=== PATIENT | male | born 1995 | race African-American/Black ===

== ENCOUNTER 2017-02-03 01:51 | Emergency (ER) | payer SELFPAY ==
[~2017-02-03] VITALS: Ht 190.5 cm; Wt 90.7 kg
[2017-02-03 01:59] VITALS: BP 128/77
== END 2017-02-03 03:40 | disposition left against medical advice (07) ==
LOC: ER 01:52
DX: M25.531 Pain in right wrist (principal); R42 Dizziness and giddiness; V89.2XXA Person injured in unspecified motor-vehicle accident, traffic, initial encounter; Y93.89 Activity, other specified; Y99.8 Other external cause status; Y92.89 Other specified places as the place of occurrence of the external cause; Z53.21 Procedure and treatment not carried out due to patient leaving prior to being seen by health care provider

== ENCOUNTER 2019-03-31 03:17 | Emergency (ER) | payer MEDICAID ==
[~2019-03-31] VITALS: Ht 190.5 cm; Wt 95.3 kg
[2019-03-31] MEDS ORDERED: IBUPROFEN 800 MG TAB PO ONE (06:30)
[2019-03-31 06:37] VITALS: BP 121/71
== END 2019-03-31 09:33 | disposition home or self-care (01) ==
LOC: ER 03:21
DX: S16.1XXA Strain of muscle, fascia and tendon at neck level, initial encounter (principal); S20.212A Contusion of left front wall of thorax, initial encounter; V43.62XA Car passenger injured in collision with other type car in traffic accident, initial encounter; Y93.89 Activity, other specified; Y92.488 Other paved roadways as the place of occurrence of the external cause; Y99.8 Other external cause status
CPT/HCPCS: 71046

== ENCOUNTER 2024-12-17 21:00 | Emergency (ER) | payer MEDICAID ==
[~2024-12-17] VITALS: Ht 190.5 cm; Wt 111.0 kg
[2024-12-17 21:10] VITALS: BP 105/72; PULSE 59; RESP 18; TEMP 98; O2SAT 98
--- NOTE | 2024-12-17 21:43 | ED.PDOC ---
Back pain HPI HPI Comments 29-YEAR-OLD MALE PRESENTS TO THE ED CHIEF COMPLAINT STATUS POST FALL RIGHT HIP PAIN. SHE WAS WALKING SLIPPED FELL ON HIS RIGHT SIDE YESTERDAY. STATES JUST GOT OUT OF WORK REPORTS INCREASING PAIN TO HIS RIGHT HIP DOWN HIS LEG. NUMBNESS, WEAKNESS, HEAD INJURY, LOC, NECK OR BACK PAIN. 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 12/17/24 Information Source: Patient Mode of Arrival: Ambulatory Timing: Days (1) Severity: Moderate Quality: Sharp, Stabbing Onset: Fall Modifying Factors: No Movement, No Walking Associated signs and symptoms: None Past Medical History PAST MEDICAL HISTORY: Denies Surgical History: Denies all surgeries Family History Family History: No family hx of DM Social History Smoker: Non-Smoker Alcohol: Denies ETOH Use Drugs: Denies Drug Use Lives In: Home Constitutional: denies: chills, diaphoresis, fatigue, fever, malaise, sweats, weakness, others EENTM: denies: blurred vision, double vision, ear bleeding, ear discharge, ear drainage, ear pain, ear ringing, eye pain, eye redness, hearing loss, mouth pain, mouth swelling, nasal discharge, nose bleeding, nose congestion, nose pain, photophobia, tearing, throat pain, throat swelling, voice changes, others Respiratory: denies: cough, hemoptysis, orthopnea, SOB at rest, shortness of breath, SOB with excertion, stridor, wheezing, others Cardiovascular: denies: chest pain, dizzy spells, diaphoresis, Dyspnea on exertion, edema, irregular heart beat, left arm pain, lightheadedness, palpitations, PND, syncope, others Gastrointestinal: denies: abdomen distended, abdominal pain, blood streaked bowels, constipated, diarrhea, dysphagia, difficulty swallowing, hematemesis, melena, nausea, poor appetite, poor fluid intake, rectal bleeding, rectal pain, vomiting, others Genitourinary: denies: burning, dysuria, flank pain, frequency, hematuria, incontinence, penile discharge, penile sore, pain, testicle pain, testicle swelling, urgency, others Neurological: denies: dizziness, fainting, headache, left sided numbness, left sided weakness, numbness, paresthesia, pre-existing deficit, right sided numbness, right sided weakness, seizure, speech problems, tingling, tremors, weakness, others Musculoskeletal: reports: others (RIGHT HIP AND THIGH); denies: back pain, gout, joint pain, joint swelling, muscle pain, muscle stiffness, neck pain Integumetry: denies: bruises, change in color, change in hair/nails, dryness, laceration, lesions, lumps, rash, wounds, others Allergic/Immunocompromised: denies: Difficulty Healing, Frequent Infections, Hives, Itching, others Hematologic/Lymphatic: denies: anemia, blood clots, easy bleeding, easy bruising, swollen glands, others Endocrine: denies: excessive hunger, excessive sweating, excessive thirst, excessive urination, flushing, intolerance to cold, intolerance to heat, unexplained weight gain, unexplained weight loss, others Psychiatric: denies: anxiety, bipolar disorder, depression, hopeless, panic disorder, schizophrenia, sleepless, suicidal, others Physical Exam General Appearance: No Apparent Distress, Normal HEENT: Pharynx Normal Neck: Full Range of Motion, Non-Tender Respiratory: Lungs Clear, No Respiratory Distress, Normal Breath Sounds Cardiovascular: No Murmur, Normal Peripheral Pulses, Regular Rate/Rhythm Breast Exam: Deferred Gastrointestinal: No Organomegaly, Non Tender, No Pulsatile Mass, Normal Bowel Sounds, Soft Genitalia: Deferred Pelvic: Deferred Rectal: Deferred Extremities: Normal capillary refill, Normal inspection, Normal range of motion, Non-tender, No pedal edema Musculoskeletal : Location: Right Extremity Location: Hip (HAS BEEN PAIN ALONG RIGHT LATERAL HIP RADIATION HALF WAY DOWN LATERAL THIGH. ABRASIONS, LACERATIONS, ECCHYMOSIS. 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 Was a procedure done?: No Back Pain Differential Dx Differential Diagnosis: Fracture, Musculoskeletal Pain X-Ray, Labs, Meds, VS Vital Signs Date Time Temp Pulse Resp B/P (MAP) Pulse Ox O2 Delivery O2 Flow Rate FiO2 12/17/24 21:10 Room Air 12/17/24 21:10 98.0 59 18 105/72 (83) 98 98.0 12/17/24 21:10 98.0 59 18 105/72 (83) 98 Current Medications Medications (Trade) Dose Ordered Sig/Jack Route Start Time Stop Time Status Last Admin Ketorolac Tromethamine (Toradol Injection) 60 mg ONCE ONCE IM 12/17/24 22:15 12/17/24 22:16 DC 12/17/24 22:35 X-Ray, Labs, Meds, VS Comment RIGHT X-RAY SHOWS NO ACUTE FINDINGS OR OSSEOUS LESIONS. TORADOL 60 MG IM REPORTS IMPROVEMENT IN PAIN AND FUNCTION REQUESTING DISCHARGE AT THIS TIME. IBUPROFEN 800 MG T.I.D. P.R.N. PAIN. FOLLOW-UP WITH PCP IN 1 TO 2 DAYS. TAKE MEDICATIONS PRESCRIBED. RETURN TO ED FOR ANY NEW OR WORSENING SYMPTOMS. Time of 1ST Reevaluation: 23:08 Reevaluation 1ST: Improved Patient Education/Counseling: Diagnosis, Treatment, Prognosis, Need For Follow Up Family Education/Counseling: No Family Present Departure 1 Departure Time of Disposition: 23:08 Impression: Primary Impression: Contusion of right hip and thigh Qualified Codes: S70.01XA - Contusion of right hip, initial encounter; S70.11XA - Contusion of right thigh, initial encounter Disposition: 01 HOME / SELF CARE / HOMELESS Condition: Stable e-Prescriptions Ibuprofen Micronized (Ibuprofen) 800 Mg Tab 800 MG PO TID PRN for 5 Days, #15 TAB Prov: MARCO A GIVENS 12/17/24 Discharged With: Self Critical Care Note Critical Care Time?: No Stability Stability form required: No MARCO A GIVENS Dec 17, 2024 21:43
--- NOTE | 2024-12-17 22:07 | DVH ---
XY R HIP COMPLETE XRAY, INDICATION: INJURY/PAIN TECHNICAL DATA: Frontal and frog lateral views were obtained of the right hip.] COMPARISON: None FINDINGS: The right hip is normally located. The right hip joint is normally maintained with no marginal osteop hytes. No right hip fracture is identified. The right sacroiliac joint appears normal. IMPRESSION: Normal radiographs of the right hip.
[2024-12-17] MEDS: KETOROLAC TROMETH 60MG/2ML VIAL IM ONE (22:35)
[2024-12-17] MEDS ORDERED: IBUP-1455 PO (22:45)
== END 2024-12-17 22:58 | disposition home or self-care (01) ==
LOC: ER 21:00
DX: S70.01XA Contusion of right hip, initial encounter (principal); S70.11XA Contusion of right thigh, initial encounter; W01.0XXA Fall on same level from slipping, tripping and stumbling without subsequent striking against object, initial encounter; Y93.01 Activity, walking, marching and hiking; Y92.89 Other specified places as the place of occurrence of the external cause; Y99.8 Other external cause status
CPT/HCPCS: 73502; 96372; 99283; J1885

== ENCOUNTER 2025-01-21 19:11 | Emergency (ER) | payer MEDICAID ==
[~2025-01-21] VITALS: Ht 190.5 cm; Wt 100.0 kg
--- NOTE | 2025-01-21 19:34 | ED.PDOC ---
History of Present Illness HPI Comments 29-year-old male who came to ER for chest pains. Patient states he has been having intermittent episodes of chest pains since July last year. Noted worsening of chest pains the past 2 weeks. Chest pain worse with movements. 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 Patient also coming in concerned that he might have acquired a sexually transmitted disease since he had unprotected sex last night with somebody who isn't his partner. Chief Complaint: Chest Pain Time Seen by MD: 19:40 Primary Care Provider: N/a Reviewed Notes: Nurses Notes Allergies: Coded Allergies: NO KNOWN ALLERGIES (Unverified , 05/23/14) Information Source: Patient Mode of Arrival: EMS Severity: Moderate Timing: Weeks Duration: Intermittent Past Medical History PAST MEDICAL HISTORY: Denies Surgical History: Denies all surgeries Family History Family History: No family hx of DM Social History Smoker: Other (Vape) Alcohol: Denies ETOH Use Drugs: Marijuana Lives In: Home Constitutional: denies: chills, diaphoresis, fatigue, fever, malaise, sweats, weakness, others EENTM: denies: blurred vision, double vision, ear bleeding, ear discharge, ear drainage, ear pain, ear ringing, eye pain, eye redness, hearing loss, mouth pain, mouth swelling, nasal discharge, nose bleeding, nose congestion, nose pain, photophobia, tearing, throat pain, throat swelling, voice changes, others Respiratory: denies: cough, hemoptysis, orthopnea, SOB at rest, shortness of breath, SOB with excertion, stridor, wheezing, others Cardiovascular: reports: chest pain; denies: dizzy spells, diaphoresis, Dyspnea on exertion, edema, irregular heart beat, left arm pain, lightheadedness, palpitations, PND, syncope, others Gastrointestinal: denies: abdomen distended, abdominal pain, blood streaked bowels, constipated, diarrhea, dysphagia, difficulty swallowing, hematemesis, melena, nausea, poor appetite, poor fluid intake, rectal bleeding, rectal pain, vomiting, others Genitourinary: denies: burning, dysuria, flank pain, frequency, hematuria, inc ontinence, penile discharge, penile sore, pain, testicle pain, testicle swelling, urgency, others Neurological: denies: dizziness, fainting, headache, left sided numbness, left sided weakness, numbness, paresthesia, pre-existing deficit, right sided numbness, right sided weakness, seizure, speech problems, tingling, tremors, weakness, others Musculoskeletal: denies: back pain, gout, joint pain, joint swelling, muscle pain, muscle stiffness, neck pain, others Integumetry: denies: bruises, change in color, change in hair/nails, dryness, laceration, lesions, lumps, rash, wounds, others Allergic/Immunocompromised: denies: Difficulty Healing, Frequent Infections, Hives, Itching, others Hematologic/Lymphatic: denies: anemia, blood clots, easy bleeding, easy bruising, swollen glands, others Endocrine: denies: excessive hunger, excessive sweating, excessive thirst, excessive urination, flushing, intolerance to cold, intolerance to heat, unexplained weight gain, unexplained weight loss, others Psychiatric: denies: anxiety, bipolar disorder, depression, hopeless, panic disorder, schizophrenia, sleepless, suicidal, others Physical Exam General Appearance: No Apparent Distress, Normal HEENT: Normal ENT Inspection, Pharynx Normal, TMs Normal Neck: Full Range of Motion, Non-Tender, Normal, Normal Inspection Respiratory: Chest Non-Tender, Lungs Clear, No Accessory Muscle Use, No Respiratory Distress, Normal Breath Sounds Cardiovascular: No Edema, No JVD, No Murmur, No Gallop, Normal Peripheral Pulses, Regular Rate/Rhythm Breast Exam: Deferred Gastrointestinal: No Organomegaly, Non Tender, No Pulsatile Mass, Normal Bowel Sounds, Soft Genitalia: Deferred Pelvic: Deferred Rectal: Deferred Extremities: No calf tenderness, Normal capillary refill, Normal inspection, Normal range of motion, Non-tender, No pedal edema Musculoskeletal : Apperance: Normal Neurologic: Alert, toter II-XII nml as Tested, No Motor Deficits, Normal Affect, Normal Mood, No Sensory Deficits Cerebellar Function: Normal Reflexes: Normal Skin: Dry, Normal Color, Warm Lymphatic: No Adenopathy Was a procedure done? Was a procedure done?: No EKG EKG : Pulse Rate (adult): 81 Cardiac Rhythm: NSR Differential Dx Considerations may include: musculoskeletal pain, CAD, anxiety, X-Ray, Labs, Meds, VS Vital Signs Date Time Temp Pulse Resp B/P (MAP) Pulse Ox O2 Delivery O2 Flow Rate FiO2 01/21/25 21:03 100.5 01/21/25 20:50 72 12 96 Room Air* 0 21 01/21/25 20:50 100.5 72 12 119/77 (91) 96 100.5 01/21/25 19:40 81 01/21/25 19:30 98.6 73 16 130/83 (99) 96 98.6 01/21/25 19:17 81 Lab Test 01/21/25 21:14 01/21/25 19:46 Range/Units Urine Color Pending Urine Clarity Pending Urine pH Pending Urine Specific [place] Pending Urine Protein Pending Urine Ketones Pending Urine Blood Pending Urine Nitrite Pending Urine Bilirubin Pending Urine Urobilinogen Pending Urine Leukocyte Esterase Pending Urine RBC Pending Urine Microscopic WBC Pending Urine Squamous Epithelial Cells Pending Urine Bacteria Pending Urine Glucose Pending Chlamydia trachomatis (LUPE) Pending Neisseria gonorrhoeae (LUPE) Pending White Blood Count 9.6 4.4-10.8 10^3/uL Red Blood Count 5.56 4.5-5.90 10^6/uL Hemoglobin 15.4 13.5-17.5 g/dL Hematocrit 46.3 41.0-53.0 % Mean Corpuscular Volume 83.4 80.0-100.0 fL Mean Corpuscular Hemoglobin 27.7 L 28.0-32.0 pg Mean Corpuscular Hemoglobin Concent 33.2 32.0-36.0 g/dL Red Cell Distribution Width 15.1 H 11.8-14.3 % Platelet Count 268 140-450 10^3/uL Mean Platelet Volume 8.6 6.9-10.8 fL Neutrophils (%) (Auto) 59.1 37.0-80.0 % Lymphocytes (%) (Auto) 30.9 10.0-50.0 % Monocytes (%) (Auto) 6.9 0.0-12.0 % Eosinophils (%) (Auto) 2.3 0.0-7.0 % Basophils (%) (Auto) 0.8 0.0-2.0 % Neutrophils # (Auto) 5.7 1.6-8.6 10 ^3/uL Lymphocytes # (Auto) 3.0 0.4-5.4 10 ^3/uL Monocytes # (Auto) 0.7 0-1.3 10 ^3/uL Eosinophils # (Auto) 0.2 0-0.8 10 ^3/uL Basophils # (Auto) 0.1 0-0.2 10 ^3/uL Nucleated Red Blood Cells 0.1 % Sodium Level 140 136-145 mmol/L Potassium Level 3.7 3.5-5.1 mmol/L Chloride Level 106 98-107 mmol/L Carbon Dioxide Level 23 20-31 mmol/L Anion Gap 11 5-15 Blood Urea Nitrogen 11 9-23 mg/dL Creatinine 1.07 0.700-1.30 mg/dL Glomerular Filtration Rate Calc 98 >90 mL/min BUN/Creatinine Ratio 10.3 10.0-20.0 Serum Glucose 78 74-106 mg/dL Calcium Level 10.8 H 8.7-10.4 mg/dL Troponin I High Sensitivity 3 L </=54 ng/L Current Medications Medications (Trade) Dose Ordered Sig/Jack Route Start Time Stop Time Status Last Admin Doxycycline Monohydrate (Vibramycin Tablet) 100 mg ONCE ONCE PO 01/21/25 19:30 01/21/25 19:31 DC 01/21/25 21:04 Ceftriaxone Sodium (Rocephin W Lidocaine IM) 1 gm ONCE ONCE IM 01/21/25 19:30 01/21/25 19:31 DC 01/21/25 21:09 Acetaminophen (Tylenol Tablet) 1,000 mg ONCE ONCE PO 01/21/25 21:00 01/21/25 21:01 DC 01/21/25 21:03 Time of 1ST Reevaluation: 19:34 Reevaluation 1ST: Unchanged Patient Education/Counseling: Diagnosis, Treatment Family Education/Counseling: Need For Follow Up Departure 1 Departure Time of Disposition: 21:25 (Patient presenting with concerns for STI and chest pain. Patient has been workup was benign. We will empirically cover patient with antibiotics for outpatient follow up) Impression: Primary Impression: STD exposure Additional Impression: Chest pain Qualified Codes: R07.9 - Chest pain, unspecified Disposition: HOME / SELF CARE / HOMELESS Condition: Stable Additional Instructions: You presented today with concern for an STD and chest Pain. We sent the labs and we will call you with the results. We are empirically treating you with antibiotics. Please take as directed. It is important to follow up with the regular doctor within 1 week to ensure you are doing well. e-Prescriptions Doxycycline Hyclate (DOXYCYCLINE HYCLATE) 100 Mg Tab 1 TAB PO BID for 7 Days, #14 TAB Prov: RADHA LEÓN MD 01/21/25 Discharged With: Self Critical Care Note Critical Care Time?: No Stability Stability form required: No Heart Score Heart Score: Heart Score Response (Comments) Value History N/A 0 EKG N/A 0 Age N/A 0 Risk Factors N/A 0 Troponin N/A 0 Total 0 I personally scribed for RADHA LEÓN MD ([facility]) on 01/21/25 at 19:34. Electronically submitted by Omar Mohamud ([facility] I personally scribed for RADHA LEÓN MD ([facility]) on 01/21/25 at 19:40. Electronically submitted by Omar Mohamud ([facility] I personally scribed for [facility] ([facility] on 01/21/25 at 19:40. Electronically submitted by Omar Mohamud ([facility] RADHA LEÓN MD Jan 21, 2025 19:34
[2025-01-21 20:10] LABS: Basophils # (auto) 0.1 10 ^3/uL (0-0.2); Basophils % (auto) 0.8 % (0.0-2.0); Eosinophils # (auto) 0.2 10 ^3/uL (0-0.8); Eosinophils % (auto) 2.3 % (0.0-7.0); Hematocrit 46.3 % (41.0-53.0); Hemoglobin 15.4 g/dL (13.5-17.5); Lymphocytes % (auto) 30.9 % (10.0-50.0); Mean Corpuscular Hemoglobin 27.7 pg (28.0-32.0); Mean Corpuscular Hgb Conc. 33.2 g/dL (32.0-36.0); Mean Corpuscular Volume 83.4 fL (80.0-100.0); Monocytes # (auto) 0.7 10 ^3/uL (0-1.3); Monocytes % (auto) 6.9 % (0.0-12.0); Neutrophils # (auto) 5.7 10 ^3/uL (1.6-8.6); Neutrophils % (auto) 59.1 % (37.0-80.0); Nucleated Red Blood Cells % 0.1 %; Platelet Count (auto) 268 10^3/uL (140-450); Red Blood Cells 5.56 10^6/uL (4.5-5.90); Red Cell Distribution Width 15.1 % (11.8-14.3); White Blood Cell 9.6 10^3/uL (4.4-10.8)
[2025-01-21 20:20] LABS: Chloride 106 mmol/L (98-107); Potassium 3.7 mmol/L (3.5-5.1); Sodium 140 mmol/L (136-145)
[2025-01-21 20:21] LABS: Anion Gap 11 (5-15); Carbon Dioxide 23 mmol/L (20-31)
[2025-01-21 20:22] LABS: Calcium 10.8 mg/dL (8.7-10.4)
[2025-01-21 20:26] LABS: BUN/Creatinine Ratio 10.3 (10.0-20.0); Blood Urea Nitrogen 11 mg/dL (9-23); Glucose 78 mg/dL (74-106)
--- NOTE | 2025-01-21 20:34 | DVH ---
CHEST RADIOGRAPH Indication: chest pain Technique: Frontal and lateral view of the chest was obtained Comparison: None FINDINGS: Lines and Tubes: None Lungs: Clear Pleura: No effusion. No pneumothorax. Cardiomediastinal contours: Unremarkable Bones: Unremarkable IMPRESSION: No abnormality.
[2025-01-21 20:50] VITALS: BP 119/77; PULSE 72; RESP 12; O2SAT 96
[2025-01-21] MEDS: ACETAMINOPHEN 325 MG TAB PO ONE (21:03)
[2025-01-21] MEDS: DOXYCYCLINE 100 MG TAB/CAP PO ONE (21:04)
[2025-01-21] MEDS: LIDOCAINE 2%HCL (LOCAL ANESTH.) INJ 10ml MDV ONE (21:08)
[2025-01-21] MEDS: cefTRIAXone SOD 1,000 MG VL ONE (21:08)
[2025-01-21] MEDS: cefTRIAXone W LIDOCAINE 1 GM IM IM ONE (21:09)
[2025-01-21 21:26] LABS: Urine Bacteria None Seen /hpf (None Seen)
[2025-01-21] MEDS ORDERED: DOXY-286 PO (21:33)
[2025-01-21 21:45] LABS: Urine Blood Negative /uL (Negative); Urine Clarity Clear (Clear); Urine Color Yellow (Yellow); Urine Protein, UAD Negative (Negative); Urine Specific Gravity 1.019 (1.001-1.035); Urine Squamous Epithelial Cell None Seen /hpf (<5); Urine Urobilinogen Normal (Negative); Urine WBC 1 /HPF (0-3); Urine pH 5.5 (5.0-9.0)
[2025-01-21 21:46] VITALS: TEMP 99.2
--- NOTE | 2025-01-24 08:47 | ECG ---
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
[2025-01-25 04:07] LABS: Chlamydia Trachomatis, NAA Negative (Negative); Neisseria gonorrhoeae, NAA Negative (Negative)
== END 2025-01-21 21:45 | disposition home or self-care (01) ==
LOC: ER 19:11
DX: R07.9 Chest pain, unspecified (principal); F17.290 Nicotine dependence, other tobacco product, uncomplicated; Z20.2 Contact with and (suspected) exposure to infections with a predominantly sexual mode of transmission
CPT/HCPCS: 36415; 71046; 80048; 81001; 84484; 85025; 87491; 87591; 93005; 96372; 99285; J0696; J2003

== ENCOUNTER 2025-05-02 10:36 | Emergency (ER) | payer MEDICAID ==
[~2025-05-02] VITALS: Ht 190.5 cm; Wt 97.0 kg
[~2025-05-02 10:36] MED LIST: DOXY-286 PO
--- NOTE | 2025-05-02 10:58 | ED.PDOC ---
Eye-HPI HPI Comments 30 year old male with no past medical history presents to the emergency department with a chief complaint of sore throat onset 1 day. Patient states he is concerned for possible COVID, has been experiencing sore throat, headache, loss of smell and taste for the past day. He woke up today experiencing diarrhea, had 2 bowel movements today. No other symptoms or modifying factors present at this time. Denies fevers chills night sweats unintentional weight loss Denies persistent chest pain, shortness of breath, leg swelling Denies history of asthma nor any breathing conditions Denies history of pneumonia Denies recent international travelQ Chief Complaint: Flu like Time Seen by MD: 10:50 Primary Care Provider: N/a Reviewed Notes: Nurses Notes, Medications, Allergies Allergies: Coded Allergies: NO KNOWN ALLERGIES (Unverified , 05/23/14) Home Meds Active Scripts Doxycycline Hyclate (DOXYCYCLINE HYCLATE) 100 Mg Tab, 1 TAB PO BID for 7 Days, #14 TAB Prov:RADHA LEÓN MD 01/21/25 Information Source: Patient Mode of Arrival: Ambulatory Timing: Days Duration: Since onset Lids: Normal Conjunctiva: Normal Cornea: Normal Pupils: Normal Fundus: Normal Slit lamp exam: Normal Anterior chamber: Normal Mouth Location: Pharynx Nose: Normal Sinuses: Normal Oropharynx: Normal Associated signs and symptoms: Sore Throat Past Medical History PAST MEDICAL HISTORY: Denies Surgical History: Denies all surgeries Family History Family History: No family hx of DM Social History Smoker: Other Alcohol: Occasionally Drugs: Marijuana Lives In: Home All Other Systems: Reviewed and Negative (as per HPI) Physical Exam General Appearance: Normal HEENT: Normal ENT Inspection, Pharynx Normal, TMs Normal Neck: Full Range of Motion, Non-Tender, Normal, Normal Inspection Respiratory: Chest Non-Tender, Lungs Clear, No Accessory Muscle Use, No Respiratory Distress, Normal Breath Sounds Cardiovascular: No Edema, No JVD, No Murmur, No Gallop, Normal Peripheral Pulses, Regular Rate/Rhythm Breast Exam: Deferred Gastrointestinal: No Organomegaly, Non Tender, No Pulsatile Mass, Normal Bowel Sounds, Soft Genitalia: Deferred Pelvic: Deferred Rectal: Deferred Extremities: No calf tenderness, Normal capillary refill, Normal inspection, Normal range of motion, Non-tender, No pedal edema Musculoskeletal : Apperance: Normal Neurologic: Alert, beater out II-XII nml as Tested, No Motor Deficits, Normal Affect, Normal Mood, No Sensory Deficits Cerebellar Function: Normal Reflexes: Normal Skin: Dry, Normal Color, Warm Lymphatic: No Adenopathy Was a procedure done? Was a procedure done?: No X-Ray, Labs, Meds, VS Comment 30 year old male with no past medical history presents to the emergency department with a chief complaint of sore throat onset 1 day. Patient arrives alert and oriented, ABC's intact, afebrile, vital signs stable, saturating well in room air labs were ordered. Labs in the ED showed (pertinent+ and then pertinent-) Additional MDM Review of External, Non-ED records: External records reviewed. Discussion with independent historian (EMS, family) history obtained from the patient/parents (if applicable) at bedside Chronic conditions affecting care: None Social determinants of health affecting care: smokes cigarettes, marijuana,ETOH occasionally Consideration of admission (observation or admission): I considered escalation of care to admission for this patient, however given the reassuring workup, the patient is safe for outpatient management. Time of 1ST Reevaluation: 11:20 Reevaluation 1ST: Improved Patient Education/Counseling: Diagnosis, Treatment Family Education/Counseling: No Family Present SEPSIS Sepsis Screen Physician Orders Rapid Influenza A&B (05/02/25 10:55) Covid19 Antigen Sommer (05/02/25 ) Critical Care Note Critical Care Time?: No Stability Stability form required: No Heart Score Heart Score: Heart Score Response (Comments) Value History N/A 0 EKG N/A 0 Age N/A 0 Risk Factors N/A 0 Troponin N/A 0 Total 0 I personally scribed for CORNELL DOMINGUEZ MD ([email or web address]) on 05/02/25 at 10:58. Electronically submitted by Ifrah Mace ([email or web address]). I personally scribed for CORNELL DOMINGUEZ MD ([email or web address]) on 05/02/25 at 10:59. Electronically submitted by Ifrah Mace ([email or web address]). CORNELL DOMINGUEZ MD May 02, 2025 10:58
--- NOTE | 2025-05-02 11:02 | ED.PDOC ---
Eye-HPI HPI Comments 30 year old male with no past medical history presents to the emergency department with a chief complaint of sore throat onset 1 day. Patient states he is concerned for possible COVID, has been experiencing sore throat, headache, loss of smell and taste for the past day. He woke up today experiencing non- bloody diarrhea today, had 2 bowel movements today. No other symptoms or modifying factors present at this time. Symptoms are rated as moderate. Therapies tried: None Denies fevers chills night sweats unintentional weight loss Denies persistent chest pain, shortness of breath, leg swelling Denies history of asthma nor any breathing conditions Denies history of pneumonia Denies recent international travel Chief Complaint: Flu like Time Seen by MD: 10:40 Primary Care Provider: N/a Reviewed Notes: Nurses Notes, Medications, Allergies Allergies: Coded Allergies: NO KNOWN ALLERGIES (Unverified , 05/23/14) Home Meds Active Scripts Ibuprofen Micronized (Ibuprofen) 600 Mg Tab, 600 MG PO TIDWM for 10 Days, #30 TAB 0 Refills Prov:CORINA ALEX NP 05/02/25 Benzonatate (Benzonatate) 100 Mg Cap, 1 CAP PO TID for 10 Days, #30 CAP 0 Refills Prov:CORINA ALEX NP 05/02/25 Doxycycline Hyclate (DOXYCYCLINE HYCLATE) 100 Mg Tab, 1 TAB PO BID for 7 Days, #14 TAB Prov:RADHA LEÓN MD 01/21/25 Information Source: Patient Mode of Arrival: Ambulatory Timing: Days Duration: Since onset Prehospital treatment: None Lids: Normal Conjunctiva: Normal Cornea: Normal Pupils: Normal EOM: Normal Fundus: Normal Slit lamp exam: Normal Anterior chamber: Normal Mouth Location: Pharynx Mouth: Normal Nose: Normal Sinuses: Normal Oropharynx: Normal Associated signs and symptoms: Sore Throat Past Medical History PAST MEDICAL HISTORY: Denies Surgical History: Denies all surgeries Family History Family History: No family hx of DM Social History Smoker: Cigarettes, Other Alcohol: Occasionally Drugs: Marijuana Lives In: Home All Other Systems: Reviewed and Negative (as per HPI) Physical Exam General Appearance: No Apparent Distress, Normal HEENT: Normal ENT Inspection, Pharynx Normal, TMs Normal Neck: Full Range of Motion, Non-Tender, Normal, Normal Inspection Respiratory: Chest Non-Tender, Lungs Clear, No Accessory Muscle Use, No Respi ratory Distress, Normal Breath Sounds Cardiovascular: No Murmur, No Gallop, Regular Rate/Rhythm Breast Exam: Deferred Gastrointestinal: No Organomegaly, Non Tender, No Pulsatile Mass, Normal Bowel Sounds, Soft Genitalia: Deferred Pelvic: Deferred Rectal: Deferred Extremities: No calf tenderness, Normal capillary refill, Normal inspection, Normal range of motion, Non-tender, No pedal edema Musculoskeletal : Apperance: Normal Neurologic: Alert, emergency room physician assistant II-XII nml as Tested, No Motor Deficits, Normal Affect, Normal Mood, No Sensory Deficits Cerebellar Function: Normal Reflexes: Normal Skin: Dry, Normal Color, Warm Lymphatic: No Adenopathy Was a procedure done? Was a procedure done?: No EENT DIFF Eye: Other Sore Throat: Streptococcal, Viral Pharyngitis, URI, Other X-Ray, Labs, Meds, VS Vital Signs Date Time Temp Pulse Resp B/P (MAP) Pulse Ox O2 Delivery O2 Flow Rate FiO2 05/02/25 12:20 98 16 98 Room Air 05/02/25 12:20 97.9 98 16 135/79 (97) 98 97.9 05/02/25 11:03 97.9 98 16 135/79 (97) 98 97.9 Lab Test 05/02/25 11:02 Range/Units Influenza Type A Antigen Negative Negative Influenza Type B Antigen Negative Negative SARS-CoV-2 Antigen (Rapid) Negative NEGATIVE X-Ray, Labs, Meds, VS Comment 30 year old male with no past medical history presents to the emergency department with a chief complaint of sore throat onset 1 day. Patient arrives alert and oriented, ABC's intact, afebrile, vital signs stable, saturating well in room air The patient is overall well-appearing nontoxic on exam. On physical exam, respirations even and unlabored, clear to auscultation bilaterally. Oxygen stable on room air. Viral testing done and results show negative findings. Did not have any focal lung findings and therefore chest x-ray was not indicated during this exam Low suspicion of strep pharyngitis given physical exam findings and patient's presenting symptoms No signs of meningismus on exam Overall, the patient is well hydrated and nontoxic. Plan for symptomatic control for fever and pain as needed. The patient was able to tolerate p.o. intake in the ED. at this time, patient is safe for discharge home. The exam findings and plan discussed. We will discharge home with PCP follow up and strict return precautions. Discussed that cough can linger up to 6 weeks after viral URI Supportive care and return precautions discussed Counseled viral infection and explained that antibiotics would not be helpful in resolving the illness sooner. Recommended vitamin C, rest, handwashing, and symptomatic care. Expect 2-week course with possibly of cough lingering up to 6 weeks. Nonpharmacological remedies for fluids has been recommended as well Additional MDM Review of External, Non-ED records: External records reviewed. Discussion with independent historian (EMS, family) history obtained from the patient/parents (if applicable) at bedside Chronic conditions affecting care: None Social determinants of health affecting care: smokes marijuana, cigarettes, ETOH occasionally Consideration of admission (observation or admission): I considered escalation of care to admission for this patient, however given the reassuring workup, the patient is safe for outpatient management. Time of 1ST Reevaluation: 11:20 Reevaluation 1ST: Improved Patient Education/Counseling: Diagnosis, Treatment Family Education/Counseling: No Family Present SEPSIS Sepsis Screen Vital Signs Date Time Temp Pulse Resp B/P (MAP) Pulse Ox O2 Delivery O2 Flow Rate FiO2 05/02/25 12:20 98 16 98 Room Air 05/02/25 12:20 97.9 98 16 135/79 (97) 98 97.9 05/02/25 11:03 97.9 98 16 135/79 (97) 98 97.9 Departure 1 Departure Time of Disposition: 11:20 Impression: Primary Impression: Viral syndrome Disposition: 01 HOME / SELF CARE / HOMELESS Condition: Stable e-Prescriptions Ibuprofen Micronized (Ibuprofen) 600 Mg Tab 600 MG PO TIDWM for 10 Days, #30 TAB 0 Refills Prov: CORINA ALEX NP 05/02/25 Benzonatate (Benzonatate) 100 Mg Cap 1 CAP PO TID for 10 Days, #30 CAP 0 Refills Prov: CORINA ALEX NP 05/02/25 Critical Care Note Critical Care Time?: No Stability Stability form required: No Heart Score Heart Score: Heart Score Response (Comments) Value History N/A 0 EKG N/A 0 Age N/A 0 Risk Factors N/A 0 Troponin N/A 0 Total 0 I personally scribed for CORINA ALEX NP ([email or web address]) on 05/02/25 at 11:02. Electronically submitted by Ifrah Mace ([email or web address]). CORINA ALEX NP May 02, 2025 11:02
[2025-05-02 11:36] LABS: COVID19 ANTIGEN SOFIA FIA NEGATIVE (NEGATIVE)
[2025-05-02] MEDS ORDERED: IBUP1TAB5 PO (12:01)
[2025-05-02] MEDS ORDERED: BENZ100C97 PO (12:01)
[2025-05-02 12:20] VITALS: BP 135/79; PULSE 98; RESP 16; TEMP 97.9; O2SAT 98
== END 2025-05-02 12:20 | disposition home or self-care (01) ==
LOC: ER 10:36
DX: B34.9 Viral infection, unspecified (principal); F12.90 Cannabis use, unspecified, uncomplicated; F17.210 Nicotine dependence, cigarettes, uncomplicated; Z20.822 Contact with and (suspected) exposure to COVID-19
CPT/HCPCS: 36415; 87426; 87804